=== PATIENT | female | born 1935 | race Hispanic/Latino ===

== ENCOUNTER → 2021-10-04 | Outpatient (CLI) | payer OTHER ==
[2021-10-04 08:44] LABS: PROTHROMBIN TIME 10.9 SEC (9.6-11.6)
[2021-10-04 08:45] LABS: PARTIAL THROMBOPLASTIN TIME 26.4 SEC (26.3-35.5)
== END | disposition home or self-care (01) ==
LOC: RAH 10:00
PROVIDERS: ATTEND Otolaryngology Plastic Surgery within the Head & Neck
DX: E04.2 Nontoxic multinodular goiter (principal); Z79.01 Long term (current) use of anticoagulants
CPT/HCPCS: 10005; 10006; 36415; 85610; 85730; 88173; 88305